=== PATIENT | female | born 1965 | race Caucasian/White ===

== ENCOUNTER 2016-08-23 00:48 | Inpatient (IN) | payer MEDICAID, OTHER ==
[~2016-08-23] VITALS: Ht 149.9 cm; Wt 67.5 kg
[2016-08-23 01:38] LABS: Basophils # (auto) 0 uL; Basophils % (auto) 0.8 % (0.0-2.0); Eosinophils # (auto) 0.2 uL; Eosinophils % (auto) 3.7 % (0.0-7.0); Hematocrit 34.6 % (36.0-46.0); Hemoglobin 10.9 g/dL (12.2-16.2); Lymphocytes # (auto) 1.7 uL; Mean Corpuscular Hemoglobin 27.2 pg (28.0-32.0); Mean Corpuscular Hgb Conc. 31.6 g/dL (32.0-36.0); Monocytes # (auto) 0.5 uL; Monocytes % (auto) 8.1 % (0.0-12.0); Neutrophils # (auto) 3.2 uL; Neutrophils % (auto) 56.4 % (37.0-80.0); Platelet Count (auto) 361 10^3/uL (140-450); Red Cell Distribution Width 17.2 % (11.6-16.0); White Blood Cell 5.6 10^3/uL (4.4-10.8)
[2016-08-23 01:57] LABS: INR 1.06 (0.9-1.15); Partial Thromboplastin Time 26.6 sec (22.64-33.71); Prothrombin Time 10.9 sec (9.37-12.3)
[2016-08-23 02:00] LABS: Anion Gap 10 (5-15); Aspartate Aminotransferase 10 U/L (15-37); BUN/Creatinine Ratio 16.5; Blood Urea Nitrogen 23 mg/dL (7-18); Carbon Dioxide 27 mmol/L (21-32); Chloride 97 mmol/L (98-107); GFR African American 51 mL/min; GFR Non-African American 42 mL/min; Potassium 3.8 mmol/L (3.5-5.1); Sodium 134 mmol/L (136-145); Total Protein 7.8 g/dL (6.4-8.2)
[2016-08-23 02:02] LABS: Alkaline Phosphatase 115 U/L (45-117); Bilirubin, Total 0.4 mg/dL (0.2-1.0); Salicylate < 1.7 mg/dL (2.8-20.0)
[2016-08-23 02:04] LABS: Glucose 477 mg/dL (74-106)
[2016-08-23 02:05] LABS: Acetaminophen < 2.0 ug/mL (10-30)
[2016-08-23] MEDS ORDERED: SODIUM CHLORIDE 0.9% 1,000 ML IV ONE ×2 (03:15→07:43)
[2016-08-23] MEDS ORDERED: InsuLIN REG 1unit/0.01ml Soln (100units/ml) IV ONE (07:45)
[2016-08-23] MEDS ORDERED: MORPHINE SULF INJ 2 MG/ML SYRINGE 1ML IV PRN ×2 (08:45)
[2016-08-23] MEDS ORDERED: TEMAZEPAM 15 MG CAP PO PRN (08:45)
[2016-08-23] MEDS ORDERED: LACTULOSE 20Gm/30ML SOLN PO PRN (08:45)
[2016-08-23] MEDS ORDERED: PROMETHAZINE HCL 25 MG/ML 1ML IV PRN (08:45)
[2016-08-23] MEDS ORDERED: NITROGLYCERIN 0.4 MG SL TAB SL PRN (08:45)
[2016-08-23] MEDS ORDERED: ACETAMINOPHEN 500 MG TAB PO PRN (08:45)
[2016-08-23] MEDS ORDERED: LORazepam 0.5 MG TAB PO PRN (08:45)
[2016-08-23] MEDS ORDERED: DEXTROSE (50%) 50ML SYRG IV PRN (08:45)
[2016-08-23] MEDS: SODIUM CHLORIDE 0.9% 1,000 ML IV SCH ×2 (09:55→19:48)
[2016-08-23 11:36] LABS: Urine Bilirubin Negative (Negative); Urine Blood Negative /uL (Negative); Urine Color Yellow (Yellow); Urine Ketone Negative (Negative); Urine Nitrite Negative (Negative); Urine RBC 2 /hpf (0 - 4); Urine Squamous Epithelial Cell FEW /hpf (<5); Urine Urobilinogen Normal (Negative)
[2016-08-23 11:37] LABS: Urine Glucose 3+ mg/dL (Normal)
[2016-08-23] MEDS: ACCU-CHEK COMFORT CURVE STRIP VI SCH ×4 (12:04→23:59)
[2016-08-23] MEDS: InsuLIN REG 1unit/0.01ml Soln (100units/ml) SC SCH ×3 (12:04→19:48)
[2016-08-23] MEDS: HYDROcodone-ACET 5/325MG TAB PO PRN (18:32)
[2016-08-23] MEDS: RIVAROXABAN 20 MG TAB PO SCH (18:36)
[2016-08-23] MEDS ORDERED: RIVA20TA PO (18:53)
[2016-08-23] MEDS ORDERED: METF-316 PO (18:53)
[2016-08-23 19:40] VITALS: BP 114/73
[2016-08-23 21:50] VITALS: BP 114/73
[2016-08-24] MEDS: InsuLIN REG 1unit/0.01ml Soln (100units/ml) SC SCH ×5 (00:01→21:37)
[2016-08-24 04:57] VITALS: BP 96/63
[2016-08-24] MEDS: SODIUM CHLORIDE 0.9% 1,000 ML IV SCH ×2 (05:18→09:45)
[2016-08-24] MEDS: ACCU-CHEK COMFORT CURVE STRIP VI SCH ×4 (05:18→21:37)
[2016-08-24 06:58] LABS: Basophils # (auto) 0 uL; Basophils % (auto) 0.8 % (0.0-2.0); DEFINITIVE VIEW TRANSMISSION; Eosinophils # (auto) 0.4 uL; Eosinophils % (auto) 7.9 % (0.0-7.0); Hematocrit 32.1 % (36.0-46.0); Lymphocytes # (auto) 2.2 uL; Lymphocytes % (auto) 41.1 % (10.0-50.0); Mean Corpuscular Hemoglobin 26.8 pg (28.0-32.0); Mean Corpuscular Hgb Conc. 31.1 g/dL (32.0-36.0); Mean Corpuscular Volume 86.3 fL (80.0-100.0); Mean Platelet Volume 7.9 fL (7.4-10.4); Monocytes # (auto) 0.5 uL; Monocytes % (auto) 9.2 % (0.0-12.0); Neutrophils # (auto) 2.2 uL; Platelet Count (auto) 291 10^3/uL (140-450); White Blood Cell 5.4 10^3/uL (4.4-10.8)
[2016-08-24] MEDS: HYDROcodone-ACET 5/325MG TAB PO PRN (07:21)
[2016-08-24 08:14] LABS: Albumin 3.2 g/dL (3.4-5.0); BUN/Creatinine Ratio 11.4; Bilirubin, Total 0.4 mg/dL (0.2-1.0); Potassium 3.9 mmol/L (3.5-5.1); Total Protein 6.2 g/dL (6.4-8.2)
[2016-08-24 08:20] VITALS: BP 112/75
[2016-08-24 08:54] VITALS: BP 112/75
[2016-08-24] MEDS ORDERED: DEXTROSE (50%) 50ML SYRG IV PRN (11:45)
[2016-08-24 13:11] VITALS: BP 124/77
[2016-08-24] MEDS: SERTRALINE HCL 50 MG TAB PO SCH (14:20)
[2016-08-24 17:28] VITALS: BP 120/76
[2016-08-24] MEDS: metFORMIN HYDROCHLORIDE 500 MG TAB PO SCH (17:54)
[2016-08-24] MEDS: RIVAROXABAN 20 MG TAB PO SCH (17:54)
[2016-08-24 22:00] VITALS: BP 103/73
[2016-08-24] MEDS ORDERED: ATORVASTATIN 20 MG TAB PO SCH (22:00)
[2016-08-25 05:00] VITALS: BP 111/69
[2016-08-25] MEDS: ACCU-CHEK COMFORT CURVE STRIP VI SCH ×2 (06:11→10:50)
[2016-08-25] MEDS: metFORMIN HYDROCHLORIDE 500 MG TAB PO SCH (06:11)
[2016-08-25] MEDS: InsuLIN REG 1unit/0.01ml Soln (100units/ml) SC SCH ×2 (06:11→10:50)
[2016-08-25 08:38] VITALS: BP 103/69
[2016-08-25] MEDS ORDERED: SODIUM CHLORIDE 0.9% 1,000 ML IV SCH (08:45)
[2016-08-25] MEDS ORDERED: ATOR20TA50 PO (10:01)
[2016-08-25] MEDS ORDERED: SERT-138 PO (10:01)
[2016-08-25] MEDS ORDERED: METF-316 PO (10:01)
[2016-08-25 10:19] VITALS: BP 103/69
[2016-08-25] MEDS: SERTRALINE HCL 50 MG TAB PO SCH (10:47)
== END 2016-08-25 11:55 | DRG 812 ==
LOC: EDBD 00:48 → ER 00:52 → TELE 00:53 → TELE-EAST 18:18 → EAST 08-24 17:13
PROVIDERS: ADMIT Internal Medicine; ATTEND Internal Medicine
DX: T50.902A Poisoning by unspecified drugs, medicaments and biological substances, intentional self-harm, initial encounter (principal); R45.851 Suicidal ideations; E11.21 Type 2 diabetes mellitus with diabetic nephropathy; E11.65 Type 2 diabetes mellitus with hyperglycemia; F32.9 Major depressive disorder, single episode, unspecified; E11.40 Type 2 diabetes mellitus with diabetic neuropathy, unspecified; N18.9 Chronic kidney disease, unspecified; E03.9 Hypothyroidism, unspecified; D63.8 Anemia in other chronic diseases classified elsewhere; G89.29 Other chronic pain; M54.9 Dorsalgia, unspecified; E11.22 Type 2 diabetes mellitus with diabetic chronic kidney disease; E78.5 Hyperlipidemia, unspecified; Z86.711 Personal history of pulmonary embolism; Z90.49 Acquired absence of other specified parts of digestive tract; Z88.0 Allergy status to penicillin; Z79.899 Other long term (current) drug therapy; Y92.89 Other specified places as the place of occurrence of the external cause; F41.9 Anxiety disorder, unspecified
CPT/HCPCS: 36415; 71010; 80053; 80061; 80320; 80329; 81001; 82010; 82962; 83036; 85025; 85610; 85652; 85730; 94761; 96360; 96361; G0434; J1815

== ENCOUNTER 2016-08-25 19:24 | Emergency (ER) | payer MEDICAID ==
[~2016-08-25] VITALS: Ht 149.9 cm; Wt 65.3 kg
[~2016-08-25 19:24] MED LIST: ATOR20TA50 PO; METF-316 PO; RIVA20TA PO; SERT-138 PO
[2016-08-26] MEDS: SERTRALINE HCL 50 MG TAB PO SCH (11:11)
[2016-08-26] MEDS: metFORMIN HYDROCHLORIDE 500 MG TAB PO SCH ×2 (11:11→21:37)
[2016-08-26] MEDS: RIVAROXABAN 20 MG TAB PO SCH (18:56)
[2016-08-26] MEDS: ATORVASTATIN 20 MG TAB PO SCH (21:37)
[2016-08-27] MEDS: SERTRALINE HCL 50 MG TAB PO SCH (11:03)
[2016-08-27] MEDS: metFORMIN HYDROCHLORIDE 500 MG TAB PO SCH ×2 (11:03→22:32)
[2016-08-27] MEDS: RIVAROXABAN 20 MG TAB PO SCH (19:02)
[2016-08-27] MEDS ORDERED: ZOLPIDEM TARTRATE 5 MG TAB ONE (22:26)
[2016-08-27] MEDS: ATORVASTATIN 20 MG TAB PO SCH (22:32)
[2016-08-28] MEDS ORDERED: SERTRALINE HCL 50 MG TAB ONE (08:39)
[2016-08-28] MEDS ORDERED: metFORMIN HYDROCHLORIDE 500 MG TAB ONE (08:39)
[2016-08-28] MEDS ORDERED: SERTRALINE HCL 50 MG TAB PO ONE (08:45)
[2016-08-28] MEDS ORDERED: metFORMIN HYDROCHLORIDE 500 MG TAB PO ONE (08:45)
[2016-08-28] MEDS: SERTRALINE HCL 50 MG TAB PO SCH (10:00)
[2016-08-28] MEDS: metFORMIN HYDROCHLORIDE 500 MG TAB PO SCH ×2 (10:00→18:20)
[2016-08-28] MEDS: RIVAROXABAN 20 MG TAB PO SCH (20:31)
[2016-08-28 20:39] VITALS: BP 155/84
[2016-08-28] MEDS ORDERED: ZOLPIDEM TARTRATE 5 MG TAB PO ONE (22:00)
== END 2016-08-28 21:36 | disposition home or self-care (01) ==
LOC: ER 19:25
DX: F32.9 Major depressive disorder, single episode, unspecified (principal); R45.851 Suicidal ideations; E11.22 Type 2 diabetes mellitus with diabetic chronic kidney disease; N18.9 Chronic kidney disease, unspecified; Z86.711 Personal history of pulmonary embolism; E07.9 Disorder of thyroid, unspecified
CPT/HCPCS: 82962